=== PATIENT | female | born 1950 | race Caucasian/White ===

== ENCOUNTER → 2017-05-23 | Outpatient (CLI) | payer OTHER ==
[2016-05-06 14:10] VITALS: BMI 32.1
[~2017-05-23] MED LIST: AMOX1TAB9 PO; APIX5TAB PO; CAL1TABL PO; CALC600T63 PO; CELE-1 PO; CETI10CA8 PO; CHOL200023 PO; CIT20 PO; CYAN50TA3 PO; GARL10005 PO; GLUC500C29 PO; HYDR-2966 PO; HYDR-3097 PO; LOR5/325 PO; METO100T20 PO; METO50TA19 PO; OMEG-11 PO; ONDA4TAB9 SL; PER PO; RIV10 PO; SIMV-54 PO; [UNRECOGNIZED DRUG - CODE] PO
--- NOTE | 2017-05-24 12:24 | RADIOLOGY IMAGING REPORT ---
FACILITY: [facility] - [place] PATIENT NAME: LILIBETH COUGHLIN : [id number] MR: [id number] V: [id number] EXAM DATE: [id number] ORDERING PHYSICIAN: TARUN HUSAIN TECHNOLOGIST: Mariann Sanchez PROCEDURE:BILATERAL DIGITAL SCREENING MAMMOGRAM WITH CAD ASSISTED INTERPRETATION AND 3D BREAST TOMOSYNTHESIS. COMPARISON:Prior mammograms dated 05/13/15 and 06/01/12. INDICATIONS:SCREENING FINDINGS: Moderately heterogeneous fibroglandular tissue is seen throughout the breasts. The parenchymal pattern has remained stable when allowing for difference in mammographic technique and patient positioning. There is no evidence of malignant appearing mass, malignant appearing calcification or other secondary sign of malignancy in either breast. DIAGNOSTIC CATEGORY 2--BENIGN FINDING. RECOMMENDATIONS: ROUTINE MAMMOGRAM AND CLINICAL EVALUATION. IMPRESSION: BI-RADS 2: No significant abnormality seen. Images were reviewed with R2CAD and 3D breast tomosynthesis. Dictated by: Sanna Manuel M.D. on 05/23/2017 at 16:18 Transcribed by: MARITZA on 05/23/2017 at 20:49 Approved by: Sanna Manuel M.D. on 05/24/2017 at 12:23 [facility]
== END ==
LOC: MAMO 01:48
PROVIDERS: ATTEND Physician Assistant
DX: Z12.31 Encounter for screening mammogram for malignant neoplasm of breast (principal)
CPT/HCPCS: 77063; 77067

== ENCOUNTER → 2018-02-14 | Outpatient (CLI) | payer MEDICARE, OTHER ==
[2016-05-06 14:10] VITALS: BMI 32.1
== END ==
LOC: RESP 20:47
PROVIDERS: ATTEND Internal Medicine Clinical Cardiac Electrophysiology
DX: G47.33 Obstructive sleep apnea (adult) (pediatric) (principal); G47.36 Sleep related hypoventilation in conditions classified elsewhere; G47.61 Periodic limb movement disorder